=== PATIENT | male | born 1980 | race Native Hawaiian/Other Pacific Islander ===

== ENCOUNTER 2023-01-22 14:23 | Emergency (ER) | payer OTHER ==
[~2023-01-22] VITALS: Ht 182.9 cm; Wt 127.9 kg
[2023-01-22 14:51] VITALS: TEMP 99
[2023-01-22 15:05] VITALS: BP 154/98
== END 2023-01-22 16:36 | disposition home or self-care (01) ==
LOC: ED 14:23
DX: R51.9 Headache, unspecified (principal); V44.5XXA Car driver injured in collision with heavy transport vehicle or bus in traffic accident, initial encounter; Y92.89 Other specified places as the place of occurrence of the external cause
CPT/HCPCS: 99283